=== PATIENT | male | born 1955 | race Caucasian/White ===

== ENCOUNTER 2019-07-16 19:01 | Emergency (ER) | payer OTHER ==
[2019-07-16] MEDS: KETOROLAC 30 MG INJ IM (20:43)
[2019-07-16] MEDS: HYDROCODONE/APAP (5/325) TAB PO (20:43)
[2019-07-16] MEDS: ONDANSETRON (ODT) 4 MG TAB ODT (20:44)
== END 2019-07-16 22:19 | disposition home or self-care (01) ==
LOC: FTE 19:01
DX: M79.605 Pain in left leg (principal); F17.210 Nicotine dependence, cigarettes, uncomplicated
CPT/HCPCS: 72100; 73510; 93971; 96372; 99285-25